=== PATIENT | female | born 1945 | race Caucasian/White ===

== ENCOUNTER 2017-01-19 15:15 | Emergency (ER) | payer MEDICARE, BC ==
--- NOTE | ~2017-01-19 | US85 ---
[facility]. [facility] A Service of [facility] & [facility] RADIOLOGY TEXT RESULTS PATIENT: GERMAN LAM LOCATION: SED : 43 UNIT #: [id number] AGE: [address]: Fawad Wolfe MD SEX: F ORDER DR: [id number] [address] [address] [id number] E MR#: [id number] Acc #: [id number] NAME: GERMAN LAM : 1945 SEX: F STUDY DATE/TIME: 01/19/2017 15:45 UNIT: SED ROOM: STUDY DESCRIPTION: [facility] [place] [facility] [facility] Attending Physician: Fawad Wolfe M.D. Ordering Physician: Fawad Wolfe M.D. Primary Care Physician: Abigail Llanes M.D. MEDICAL IMAGING REPORT This report is preliminary unless electronic signature is present. EXAM Right lower extremity venous duplex 01/19/2017 HISTORY Right lower extremity pain, swelling and bruising for 5 days with no known trauma. Evaluate for deep vein thrombosis. TECHNIQUE Venous ultrasound examination of the right lower extremity was performed using grayscale, spectral Doppler and color flow Doppler imaging. FINDINGS The examination is negative. There is no evidence of right lower extremity deep venous thrombus from the groin to the lower calf. Visualized greater saphenous vein is also patent. IMPRESSION Negative examination. No evidence of right lower extremity deep venous thrombosis. Dictated by... Magdy Calix M.D. THIS IS AN ELECTRONICALLY VERIFIED REPORT Magdy Calix M.D. at 01/20/2017 7:29 AM KRT/to TD: 01/19/2017 20:38 JOB #: [id number] MEDICAL IMAGING REPORT Page 1 of 1
[~2017-01-19 15:15] MED LIST: ALLEGRA PO; ASPIRIN PO; ASPIRIN81 M1 PO; ATENOLOL PO; ATENOLOL25 MG PO; CALCIUM 500 +1 EACH PO; CELEXA10 MG PO; CENTRUM PO; EVISTA60 MG PO; FISH OIL 1,2001 EAC1 PO; FLONASE16 GM; GLUCOSAMINE/CHON; LODINE PO; LODINE400 MG PO; LORTAB 5/500 TA1 TA1 PO; MAGNESIUM27 MG; MOBIC PO; THERALITH XR T1 EACH PO; ULTRAM PO; VAGIFEM VAG; VIT B12 PO; VIT D; [UNRECOGNIZED DRUG - OTHER]; [UNRECOGNIZED DRUG - OTHER]; [UNRECOGNIZED DRUG - OTHER] VAG
[2017-01-19 16:40] LABS: BASOPHIL% 0.7 % (0-2.5); EOSINOPHIL# 0.1 X10e3 (0-0.7); EOSINOPHIL% 1.2 % (0.0-7.0); HEMATOCRIT 43.8 % (35.0-45.0); HEMOGLOBIN 14.6 gm/dL (12.0-16.0); LYMPHOCYTE# 1.5 X10e3 (1.0-3.5); LYMPHOCYTE% 21.9 % (17.0-45.0); MEAN CELL VOLUME 89.1 FL (83-96); MEAN CORPUSCULAR HEMOGLOBIN 29.7 PG (28-34); MEAN CORPUSCULAR HGB CONC 33.3 g/dL (30-36); MONOCYTE# 0.6 X10e3 (0-1.0); MONOCYTE% 9.5 % (3.0-12.0); NEUTROPHIL# 4.5 X10e3 (1.5-7.1); NEUTROPHIL% 66.7 % (40-75); PLATELET COUNT 207 X10e3 (140-420); RED BLOOD COUNT 4.92 X10e (3.90-5.30); RED CELL DISTRIBUTION WIDTH 14.7 % (11.0-15.5); WHITE BLOOD COUNT 6.8 X10e3 (4.0-10.5)
[2017-01-19 16:42] LABS: DIFF IND NO
[2017-01-19 17:10] LABS: CALCIUM SERUM 9.1 mg/dL (8.4-10.2); GLOM FILT RATE Estimated 56.3 mL/min (>60); POTASSIUM 3.9 mmol/L (3.5-5.1)
== END 2017-01-19 17:12 | disposition home or self-care (01) ==
LOC: SED 15:15
PROVIDERS: Emergency Medicine
DX: S80.11XA Contusion of right lower leg, initial encounter (principal); I10 Essential (primary) hypertension; Z98.51 Tubal ligation status; Z90.710 Acquired absence of both cervix and uterus; Z79.82 Long term (current) use of aspirin; Z79.899 Other long term (current) drug therapy; Z88.5 Allergy status to narcotic agent; Z88.8 Allergy status to other drugs, medicaments and biological substances; X58.XXXA Exposure to other specified factors, initial encounter
CPT/HCPCS: 36415; 80048; 85025; 93971; 99284